=== PATIENT | male | born 1950 | race Caucasian/White ===

== ENCOUNTER 2017-12-09 11:47 | Emergency (ER) | payer MEDICARE, MEDICAID ==
[~2017-12-09] VITALS: Ht 177.8 cm; Wt 100.0 kg
[~2017-12-09 11:47] MED LIST: AMI25T PO; ATOR10TA87 PO; COR3.125T PO; LISI40TA4 PO; METF500T PO
[2017-12-09 11:53] VITALS: BP 109/51
[2017-12-09] MEDS ORDERED: TETanus/Pertussis (Acell)/Diphther VAC/PF (Tdap-Adult) 0.5ml syringe IM ONE (12:05)
[2017-12-09] MEDS ORDERED: LIDOcaine 1.5% w/epinephrine 1:200,000 5ml ampul IJ ONE (12:05)
== END 2017-12-09 14:34 | disposition home or self-care (01) ==
LOC: ER 11:48
DX: S71.111A Laceration without foreign body, right thigh, initial encounter (principal); I10 Essential (primary) hypertension; E11.9 Type 2 diabetes mellitus without complications; Z79.84 Long term (current) use of oral hypoglycemic drugs; Z79.899 Other long term (current) drug therapy; W26.0XXA Contact with knife, initial encounter; Y93.89 Activity, other specified; Y92.89 Other specified places as the place of occurrence of the external cause; Y99.8 Other external cause status
CPT/HCPCS: 12001; 90471; 90715; 99284; J3490

== ENCOUNTER 2020-09-13 13:02 | Emergency (ER) | payer MEDICARE, MEDICAID ==
[~2020-09-13] VITALS: Ht 177.8 cm; Wt 100.0 kg
[~2020-09-13 13:02] MED LIST changes: +LISI40TA13 PO; -LISI40TA4 PO
--- NOTE | 2020-09-13 13:40 | NUR ---
RPD AT BEDSIDE
[2020-09-13 13:42] VITALS: BP 123/79
[2020-09-13] MEDS ORDERED: acetaminophen 325mg tablet PO ONE (15:40)
[2020-09-13] MEDS ORDERED: ketorolac trometh. 30mg/ml inj. IM ONE (15:40)
[2020-09-13] MEDS ORDERED: HYDROcodone/acetaminophen 5mg/325mg tablet PO ONE (15:45)
== END 2020-09-13 16:06 | disposition home or self-care (01) ==
LOC: ER 13:02
DX: S86.811A Strain of other muscle(s) and tendon(s) at lower leg level, right leg, initial encounter (principal); I10 Essential (primary) hypertension; E11.9 Type 2 diabetes mellitus without complications; Z91.048 Other nonmedicinal substance allergy status; Z79.899 Other long term (current) drug therapy; Y04.0XXA Assault by unarmed brawl or fight, initial encounter; Y93.89 Activity, other specified; Y92.89 Other specified places as the place of occurrence of the external cause; Y99.8 Other external cause status
CPT/HCPCS: 73552; 73590; 99284

== ENCOUNTER 2023-12-15 20:35 | Emergency (ER) | payer MEDICARE, MEDICAID ==
[~2023-12-15] VITALS: Ht 177.8 cm; Wt 81.8 kg
[2023-12-15 20:51] VITALS: BP 124/83; PULSE 94; TEMP 97.8; O2SAT 98
[2023-12-15] MEDS ORDERED: ibuprofen tablet 400 MG TABLET PO ONE (21:30)
[2023-12-15] MEDS: acetaminophen 325mg tablet PO ONE (22:09)
[2023-12-15] MEDS: ibuprofen 200mg tablet PO ONE (22:10)
[2023-12-15] MEDS ORDERED: PRED20TA PO (23:19)
[2023-12-15] MEDS ORDERED: TRAM50TA2 PO (23:19)
[2023-12-15] MEDS: traMADol 50MG tablet PO ONE (23:26)
[2023-12-15] MEDS: prednisone 10mg tablet PO ONE (23:26)
[2023-12-15 23:28] VITALS: RESP 18
== END 2023-12-15 23:31 | disposition home or self-care (01) ==
LOC: ER 20:36
DX: M79.604 Pain in right leg (principal); I10 Essential (primary) hypertension; E11.9 Type 2 diabetes mellitus without complications; Z79.899 Other long term (current) drug therapy; Z79.84 Long term (current) use of oral hypoglycemic drugs
CPT/HCPCS: 93971; 99284; J7512